=== PATIENT | male | born 1995 | race Caucasian/White ===

== ENCOUNTER → 2025-05-13 13:20 | Outpatient (CLI) | payer OTHER, SELFPAY ==
--- NOTE | 2025-05-13 13:37 | DI.RAD.S_ITS ---
PROCEDURE: XR LUMBAR SPINE 2-3V INDICATIONS: LOWER BACK PAIN TECHNIQUE: 3 views of the lumbar spine were acquired. COMPARISON: None. FINDINGS: Lumbar spine curvature and alignment: Normal. Bones: There are no osseous abnormalities. Disc spaces: Normal in height without significant degeneration. Screws provide arthrodesis across both SI joints. Alignment is anatomic. Joints lines remain visualized Intervertebral foramen: Grossly normal in width. Soft tissues: No soft tissue swelling, calcification or mass. IMPRESSION: Normal lumbar spine. Bilateral delete SI joint arthrodesis that anatomic alignment Dictated by: Cosmo Canela M.D. on 05/14/2025 at 11:08 Approved by: Cosmo Canela M.D. on 05/14/2025 at 11:09
== END ==
PROVIDERS: Referring Provider Chiropractor; Visit Provider Chiropractor
DX: M54.50 Low back pain, unspecified (principal); Z98.1 Arthrodesis status
CPT/HCPCS: 72100

== ENCOUNTER → 2025-07-30 08:51 | Outpatient (CLI) | payer OTHER, SELFPAY ==
--- NOTE | 2025-07-30 08:52 | DI.MRI.S_ITS ---
PROCEDURE: MR LUMBAR SPINE WO CON INDICATIONS: SCIATICA TECHNIQUE: Noncontrast sagittal T1 spin echo and T2 fast echo, sagittal STIR, and T2 fast spin echo through the lumbar spine. In cases with scoliosis, additional coronal T2 fast spin echo may be performed. COMPARISON: [facility], CR, XR LUMBAR SPINE 2-3V, 05/13/2025, 13:34. FINDINGS: Image quality: Excellent. Alignment and Curvature: There is normal bony alignment. Bone Marrow: Marrow is of normal overall signal. No acute vertebral body compression fractures. Spinal Cord: Conus medullaris terminates at the L1 level. Visualized cord demonstrates normal signal and size. Paraspinous Soft Tissues: No paravertebral masses. T12-L1: Normal appearance. L1-L2: Normal appearance. L2-L3: Normal appearance. L3-L4: Normal appearance. L4-L5: Loss of disc signal. Mild, diffuse disc bulge. No central stenosis. Mild bilateral neural foraminal narrowing. No neural compression. Fissure in the right foraminal annulus. L5-S1: Loss of disc signal. Mild, diffuse disc bulge. No central stenosis. Mild to moderate bilateral neural foraminal narrowing. No neural compression. Bilateral sacroiliac joint arthrodesis screws. IMPRESSION: Mild L4-L5 and L5-S1 degenerative disc disease. No severe central canal stenosis. No severe neural foraminal stenosis. No neural compression. Dictated by: Karina Mckeno MD, PhD on 07/30/2025 at 13:01 Approved by: Karina Mckeon MD, PhD on 07/30/2025 at 13:03
== END ==
LOC: MRI 08:51
PROVIDERS: Referring Provider Acupuncturist; Visit Provider Acupuncturist
DX: M51.16 Intervertebral disc disorders with radiculopathy, lumbar region (principal); M51.17 Intervertebral disc disorders with radiculopathy, lumbosacral region
CPT/HCPCS: 72148